=== PATIENT | female | born 2000 | race Caucasian/White ===

== ENCOUNTER 2023-12-07 11:28 | Emergency (ER) | payer OTHER ==
[~2023-12-07] VITALS: Ht 160 cm; Wt 71.7 kg
[2023-12-07 11:50] VITALS: O2SAT 100
[2023-12-07] MEDS: DIPHENHYDRAMINE 25MG CAPSULE PO ONE (13:01)
[2023-12-07] MEDS: PROCHLORPERAZINE MALEATE 10MG TABLET PO ONE (13:01)
[2023-12-07] MEDS ORDERED: IBUP-2028 MT (13:10)
[2023-12-07 13:21] VITALS: BP 111/75; PULSE 74; RESP 16; TEMP 98.6
== END 2023-12-07 13:24 | disposition home or self-care (01) ==
LOC: ER 11:28
DX: G43.909 Migraine, unspecified, not intractable, without status migrainosus (principal)
CPT/HCPCS: 99283; 81025; Q0163; Q0164